=== PATIENT | male | born 1975 | race Caucasian/White ===

== ENCOUNTER 2018-08-25 18:26 | Emergency (ER) | payer BC ==
[2018-08-25 18:41] VITALS: BMI 29.9
--- NOTE | 2018-08-25 18:44 | PDOC ---
Rapid Medical Evaluation Chief Complaint: Shortness of Breath Time Seen by Provider: 08/25/18 18:38 Medical Evaluation: Allergies Allergy/AdvReac Type Severity Reaction Status Date / Time No Known Allergies Allergy Verified 08/25/18 18:37 08/25/18 18:41 I have performed a brief in-person evaluation of this patient The patient presents with a chief complaint of new onset Afib and 2 days of SOB on exertion, no chest pain I have ordered the following EKG, CXR, CBC, CMP, cardiac enzymes The patient will proceed to the ED for further evaluation Discharge Disposition - Diagnosis A-fib Qualifiers: Atrial fibrillation type: unspecified Qualified Code(s): I48.91 - Unspecified atrial fibrillation - Referrals Referrals: Hugh Will [Primary Care Provider] - - Patient Instructions - Post Discharge Activity
--- NOTE | 2018-08-25 19:36 | PDOC ---
History of Present Illness - General Chief Complaint: Shortness of Breath Stated Complaint: REF. DOCTOR Time Seen by Provider: 08/25/18 18:38 History Source: Patient, Other (urgent care notes) Exam Limitations: No Limitations - History of Present Illness Initial Comments: 08/25/18 19:31 Pt is a 43yo M with no significant PMH presenting to ED from urgent care for newly diagnosed Afib on EKG. Pt said for the past 4-5 days he would experience palpitations with shortness of breath with exertion but would feel fine at rest. He states he would also have some chest discomfort. He denies syncope, back pain, neck pain, headache, weakness, numbness, tingling, changes in vision , abdominal pain, n/v/d, fevers, chills. He denies taking any medications. He denies illicit drug use. PMD: [facility] PMH: none PSH: none Meds: none Allergies: nkda Social: occasional alcohol use. Denies tobacco, illicit drug use. Past History - Past Medical History Allergies/Adverse Reactions: Allergies Allergy/AdvReac Type Severity Reaction Status Date / Time No Known Allergies Allergy Verified 08/25/18 18:37 COPD: No - Suicide/Smoking/Psychosocial Hx Smoking History: Never smoked Hx Alcohol Use: No Drug/Substance Use Hx: No Review of Systems - Review of Systems Constitutional: No: Chills, Fever, Weakness HEENTM: No: Recent change in vision Respiratory: Yes: See HPI, Shortness of Breath, SOB with Exertion. No: Cough, Wheezing Cardiac (ROS): Yes: See HPI, Irregular Heart Rate, Palpitations, Chest Tightness. No: Lightheadedness, Syncope ABD/GI: No: Constipated, Diarrhea, Nausea, Rectal Bleeding, Vomiting, Abdominal cramping : No: Burning, Dysuria Musculoskeletal: No: Back Pain, Joint Pain Integumentary: No: Symptoms Reported Neurological: No: Headache, Numbness, Tingling, Weakness *Physical Exam - Vital Signs Last Vital Signs Temp Pulse Resp BP Pulse Ox 98.6 F 83 16 121/75 100 08/25/18 18:38 08/25/18 18:38 08/25/18 18:38 08/25/18 18:38 08/25/18 18:38 - Physical Exam General Appearance: Yes: Nourished, Appropriately Dressed. No: Apparent Distress HEENT: positive: EOMI, DEBI Neck: positive: Trachea midline, Supple. negative: Lymphadenopathy (R), Lymphadenopathy (L) Respiratory/Chest: positive: Lungs Clear, Normal Breath Sounds. negative: Crackles, Rales, Rhonchi, Stridor, Wheezing Cardiovascular: positive: S1, S2, Irregularly Irregular. negative: Edema, JVD, Murmur Vascular Pulses: Carotid (R): 2+, Carotid (L): 2+, Dorsalis-Pedis (R): 2+, Doralis-Pedis (L): 2+ Gastrointestinal/Abdominal: positive: Normal Bowel Sounds, Soft. negative: Distended, Guarding, Rebound, Tenderness Musculoskeletal: negative: CVA Tenderness Extremity: positive: Normal Capillary Refill. negative: Coldness, Cyanosis, Swelling, Calf Tenderness Integumentary: positive: Normal Color, Dry, Warm Neurologic: positive: lead applications developer II-XII NML intact, Fully Oriented, Alert, Normal Mood/ Affect, Normal Response, Motor Strength 5/5 Moderate Sedation - Procedure Monitoring Vital Signs: Procedure Monitoring Vital Signs Temperature 98.6 F 08/25/18 18:38 Pulse Rate 83 08/25/18 18:38 Respiratory Rate 16 08/25/18 18:38 Blood Pressure 121/75 08/25/18 18:38 O2 Sat by Pulse Oximetry (%) 100 08/25/18 18:38 ED Treatment Course - LABORATORY CBC & Chemistry Diagram: 08/25/18 18:58 08/25/18 18:58 Medical Decision Making - Medical Decision Making 08/25/18 19:34 Pt is a 43yo M with no significant PMH presenting to ED from urgent care for newly diagnosed Afib on EKG. Pt said for the past 4-5 days he would experience palpitations with shortness of breath with exertion but would feel fine at rest. He states he would also have some chest discomfort. He denies syncope, back pain, neck pain, headache, weakness, numbness, tingling, changes in vision , abdominal pain, n/v/d, fevers, chills. He denies taking any medications. He denies illicit drug use. Vitals: tachpnea 24 however during interview pt had RR of 16 PE: irregularly irregular heart sounds DDx: Afib, other arrythmia, hyperthyroid, medication se, toxidrome [id number] score of 0. Has very low stroke risk. Scribe called PMD office and was deferred to on-call physician. Per scribe, physician was not familiar with patient however deemed it appropriate to dc pt without NOAC and pt should follow up in office. Pt agreed to plan. Can be dc home. very low stroke risk. Can be dc home without anticoagulation at this time. *DC/Admit/Observation/Transfer Diagnosis at time of Disposition: A-fib Qualifiers: Atrial fibrillation type: unspecified Qualified Code(s): I48.91 - Unspecified atrial fibrillation - Discharge Dispostion Disposition: HOME Condition at time of disposition: Good Decision to Admit order: No - Referrals Referrals: Hugh Will [Primary Care Provider] - Jose Terry MD [Staff Physician] - - Patient Instructions Printed Discharge Instructions: Atrial Fibrillation, DI for Atrial Fibrillation Additional Instructions: You were seen here today because you have been found to have atrial fibrillation. We contacted your primary care doctor and you will need to see him in the office. Please make an appointment within the week to schedule an appointment. Please come back to the emergency room if your chest pain gets worse, you are short of breath, you lose consciousness or if any new concerning symptom develops. Thank you - Post Discharge Activity
[2018-08-25 19:49] LABS: BASO % 0.6 % (0-2.0); EOS % 3.6 % (0-4.5); HEMATOCRIT 44.2 % (35.4-49); HEMOGLOBIN 15.2 GM/dL (11.7-16.9); LYMPH % 50.2 % (8-40); MCHC 34.4 g/dl (32.0-35.9); MEAN CELL VOLUME 87.1 fl (80-96); MEAN PLT VOLUME 9.8 fl (7.5-11.1); MONO % 8.1 % (3.8-10.2); NEUT % 37.5 % (42.8-82.8); PLATELET COUNT 196 K/MM3 (134-434); RBC 5.08 M/mm3 (4.00-5.60); RDW 13.5 % (11.9-15.9); WHITE BLOOD COUNT 6.2 K/mm3 (4.0-10.0)
[2018-08-25 19:57] LABS: PROTHROMBIN TIME (PATIENT) 11.8 SEC (9.7-13.0)
[2018-08-25 20:31] LABS: ALBUMIN 3.9 g/dl (3.4-5.0); ALK PHOS 47 U/L (45-117); ANION GAP 7 MMOL/L (8-16); BILIRUBIN,TOTAL 0.4 mg/dL (0.2-1); BLOOD UREA NITROGEN 15 mg/dL (7-18); CALCIUM 8.8 mg/dL (8.5-10.1); CHLORIDE 105 mmol/L (98-107); CO2 27 mmol/L (21-32); CREATININE 1.3 mg/dL (0.55-1.3); GLUCOSE,RANDOM 92 mg/dL (74-106); LIPASE 266 U/L (73-393); PHOSPHOROUS 3.5 mg/dL (2.5-4.9); SGPT/ALT 42 U/L (13-61); SODIUM 139 mmol/L (136-145); TOT PROT 7.2 g/dl (6.4-8.2)
[2018-08-25 20:32] LABS: MAGNESIUM 2.4 mg/dL (1.8-2.4); POTASSIUM 4.6 mmol/L (3.5-5.1); SGOT/AST 34 U/L (15-37)
--- NOTE | 2018-08-25 22:26 | PDOC ---
Attending Attestation - Resident Resident Name: Samina Padilla - ED Attending Attestation I have performed the following: I have examined & evaluated the patient, The case was reviewed & discussed with the resident, I agree w/resident's findings & plan, Exceptions are as noted - HPI HPI: 08/25/18 22:24 43yoM w/ intermittent epislodes of palpitations x few days. No other PMHx. Sent from [facility] for new dx of a.fib. Pt is not in RVR in the ED. No syncope, no n/ v/d, no headache. - Physicial Exam PE: 08/25/18 22:25 NAD well apeparing irreg irreg, no m/r/g ctabl, no w/r/r soft NTND no edema neuro grossly intact A&O x 3. - Medical Decision Making 08/25/18 22:24 43yoM w/ new onset of a.fib x few days. labs w/ TSH cardaic monitor ekg cxr d/w PMD who would not like AC at this time f/u w/ PMD.
[2018-08-26 01:51] VITALS: BP 126/68; PULSE 72; TEMP 97.9
--- NOTE | 2018-08-26 10:20 | EKG ---
Test Reason : Blood Pressure : / mmHG Vent. Rate : 069 BPM Atrial Rate : 340 BPM P-R Int : 000 ms QRS Dur : 094 ms QT Int : 366 ms P-R-T Axes : 000 050 027 degrees QTc Int : 392 ms ATRIAL FIBRILLATION ABNORMAL ECG NO PREVIOUS ECGS AVAILABLE Confirmed by AGNIESZKA SALINAS MD ([id number]) on 08/26/2018 10:20:29 AM Referred By: Confirmed By:AGNIESZKA SALINAS MD
== END 2018-08-25 23:35 | disposition home or self-care (01) ==
LOC: JER 18:26
DX: I48.91 Unspecified atrial fibrillation (principal)
CPT/HCPCS: 36415; 71046-TC-FY; 80053; 82550; 82553; 83690; 83735; 84100; 84443; 84484; 85025; 85610; 93005; 93010; 99283-25